=== PATIENT | female | born 1965 | race Caucasian/White ===

== ENCOUNTER 2017-12-11 11:09 | Emergency (ER) | payer OTHER ==
[~2017-12-11] VITALS: Ht 162.6 cm; Wt 77.1 kg
[~2017-12-11 11:09] MED LIST: ALBU90OI61 INH; OXYACE5T PO; PENVK500 PO; RXALBOI INH
[2017-12-11] MEDS ORDERED: ALPR.5 PO (11:59)
[2017-12-11] MEDS ORDERED: CYCL10 PO (12:00)
[2017-12-11] MEDS ORDERED: TRAM50 PO (12:02)
[2017-12-11] MEDS ORDERED: NAPR500EC PO (12:02)
[2017-12-11] MEDS ORDERED: Celexa10 MG PO (12:02)
[2017-12-11] MEDS ORDERED: ALBU90OI INH (12:02)
[2017-12-11] MEDS ORDERED: Pravachol40 MG PO (12:03)
== END 2017-12-11 13:20 | disposition home or self-care (01) ==
LOC: ER 11:09
DX: S93.402A Sprain of unspecified ligament of left ankle, initial encounter (principal); J45.909 Unspecified asthma, uncomplicated; F41.9 Anxiety disorder, unspecified; Z88.6 Allergy status to analgesic agent; Z79.899 Other long term (current) drug therapy; Z87.891 Personal history of nicotine dependence
CPT/HCPCS: 73610

== ENCOUNTER → 2018-12-02 | Outpatient (CLI) | payer OTHER ==
[~2018-12-02] MED LIST changes: +ALBU90OI INH; +ALPR.5 PO; +CYCL10 PO; +Celexa10 MG PO; +NAPR500EC PO; +Pravachol40 MG PO; +TRAM50 PO
== END ==
LOC: LAB 13:20 → LAB FUT 12-02 16:00
DX: K21.0 Gastro-esophageal reflux disease with esophagitis (principal); Z87.440 Personal history of urinary (tract) infections
CPT/HCPCS: 87338

== ENCOUNTER → 2019-03-16 | Outpatient (CLI) | payer OTHER | END | disposition home or self-care (01) | LOC: LAB 17:19 → LAB SHORT 17:19 | DX: M51.37 Other intervertebral disc degeneration, lumbosacral region (principal) | CPT/HCPCS: G0480 ==